=== PATIENT | male | born 1960 | race Caucasian/White ===

== ENCOUNTER 2020-04-18 22:52 | Emergency (ER) | payer MEDICARE, OTHER ==
[2020-04-18] MEDS ORDERED: Adacel (T-DAP) 0.5 ML SYRINGE ONE (23:01)
[2020-04-18 23:24] LABS: #Basophils 0.1 thou/uL (0.0-0.2); #Eosinphils 0.1 thou/uL (0.0-0.7); #Lymphocytes 2.4 thou/uL (1.20-3.40); #Monocytes 0.8 thou/uL (0.11-0.59); #Neutrophils 5.8 thou/uL (1.40-6.50); %Basophils 0.9 % (0.0-1.0); %Eosinophils 0.6 % (0.0-10.0); %Lymphocytes 26.3 % (21.0-51.0); %Neutrophils 63.3 % (42.0-75.0); Hemoglobin 14.2 g/dL (14.0-18.0); Mean Corpuscular HGB CONC 34.9 g/dL (32.0-36.0); Mean Corpuscular Hemoglobin 33.9 pg (27.0-31.0); Mean Corpuscular Volume 97.3 fL (78.0-98.0); Mean Platelet Volume 7.7 fL (7.4-10.4); Platelet Count 215 thou/uL (130-400); RBC Distribution Width 12.1 % (11.5-14.5); Red Blood Cell (RBC) Count 4.17 mill/uL (4.70-6.10); White Blood Cell (WBC) Count 9.1 thou/uL (4.8-10.8)
[2020-04-18 23:44] LABS: ALT (SGPT) 40 U/L (8-55); AST (SGOT) 44 U/L (5-34); Albumin 4.3 g/dL (3.4-4.8); Alkaline Phosphatase 48 U/L (40-110); Anion Gap 15 mmol/L (10-20); BUN (Urea Nitrogen) 14 mg/dL (8.4-25.7); Bilirubin, Total 0.4 mg/dL (0.2-1.2); Calc. Creatinine Clearance 0 mL/min (70-130); Calcium 9.1 mg/dL (7.8-10.44); Carbon Dioxide 23 mmol/L (23-31); Chloride 99 mmol/L (98-107); Estimated GFR-MDRD 63; Globulin 3.5 g/dL (2.4-3.5); Glucose 107 mg/dL (80-115); Potassium 3.9 mmol/L (3.5-5.1); Protein, Total 7.8 g/dL (5.8-8.1); Sodium 133 mmol/L (136-145)
--- NOTE | 2020-04-19 00:01 | CT ---
EXAM: CT brain without contrast HISTORY: Syncope. Found unconscious COMPARISON: None TECHNIQUE: Multiple contiguous axial images were obtained and a CT of the brain without contrast. FINDINGS: The brain is normal in morphology and attenuation without focal lesions or confluent areas of infarction. There is no evidence of hydrocephalus, intracranial hemorrhage, or extra-axial fluid collection. The calvarium and overlying soft tissues are unremarkable. The visualized paranasal sinuses and masto id air cells are well aerated. IMPRESSION: No evidence of acute intracranial abnormality
--- NOTE | 2020-04-19 07:32 | RAD ---
RADIOGRAPH CHEST 1 VIEW: DATE: 04/19/2020 HISTORY: 59-year-old male status post syncope. Concern for aspiration. FINDINGS: There are no airspace densities, pulmonary edema, pneumothorax, or cardiomegaly. The lateral costophr enic angles are sharp. IMPRESSION: No acute cardiopulmonary findings.
--- NOTE | 2020-04-19 08:16 | MRI ---
PRELIMINARY REPORT/[facility]/EMERGENCY AFTER HOURS PROCEDURE: EXAM: MR Cervical Spine Without Intravenous Contrast. CLINICAL HISTORY: FALL, C/O BILAT HAND NUMBNESS TECHNIQUE: Magnetic resonance images of the cervical spine without intravenous contrast in multiple p lanes. CONTRAST: Without COMPARISON: 02/22/2016. FINDINGS: The vertebral body heights are maintained. Multilevel mild to moderate disc narrowing and osteophytosis throughout the cervical spine. The cervical cord is normal in signal. The bone marrow signal is normal. The facets are well aligned. The paravertebral soft tissues are normal. FINDINGS BY LEVEL: C2-C3: No central canal or foraminal stenosis. C3-C4: Left-sided uncinate spondylosis and left-sided facet hypertrophy with severe left-sided forami nal stenosis. The thecal sac is normal in size. The right foramen is patent. C4-C5: Posterior disc bulge. The thecal sac measures 7 mm in AP dimension. Bilateral uncinate spond ylosis with severe right and moderate left foraminal stenosis. C5-C6: Central disc protrusion. Thecal sac measures 7 mm in AP dimension. Bilateral uncinate spondy losis with severe bilateral foraminal stenosis. C6-C7: Posterior disc bulge. The thecal sac measures 8 mm in AP dimension. Bilateral uncinate spond ylosis with severe bilateral foraminal stenosis. C7-T1: Bilateral uncinate spondylosis with moderate bilateral foraminal stenosis. The thecal sac is normal in size. IMPRESSION: No acute cervical spinal abnormality. Multilevel mild to moderate degenerative disc disea se. Moderate central stenosis at C4-C5 and C5-C6 and mild at C6-C7. Multilevel foraminal stenosis, severe at multiple levels. The findings appear relatively unchanged since 02/22/2016. ELECTRONICALLY SIGNED BY: Can Bain MD Apr 19, 2020 2:21:00 AM CDT FINAL REPORT MRI CERVICAL SPINE WITHOUT CONTRAST: HISTORY: Fall. Abrasions. Trauma. Bilateral hand numbness.. COMPARISON: 02/22/2016. FINDINGS: Appropriate T1 marrow signal intensity of the cervical vertebrae. No fracture. No significant STIR h yperintensity to suggest vertebral body edema or ligamentous injury. There is fluid in the C6-C7 disc space which is developed in the interim. Preserved endplates. Prevertebral fluid and edema at th e C6-T2 prevertebral soft tissues suggesting at least partial disruption of the anterior longitudinal ligament. Visualized brain parenchyma, cervicomedullary junction, cervical cord and the upper thoracic cord hav e normal size and signal intensity. C2-C3: Disc desiccation. No significant central canal stenosis or significant neural foraminal narrow ing. C3-C4: Disc desiccation with stable severe loss of disc space height. Redemonstration of a broad-base d disc-osteophyte complex. Mild to moderate central canal stenosis. Mild bilateral neural foraminal narrowing due to uncovertebral hypertrophy. C4-C5: Disc desiccation with severe loss of disc space height. Broad-based disc-osteophyte complex wi th severe central canal stenosis. Severe right and [id number] left foraminal narrowing due to uncovertebral hypertrophy. C5-C6: Stable disc desiccation with severe loss of disc space height. Broad-based disc bulge with a c entral disc herniation. Moderate central canal stenosis. Two subtle foci of T2 hyperintensity in the cervical cord, nonspecific. Moderate right and moderate to severe left neural foraminal narrowing due to uncovertebral hypertrophy. C6-C7: Fluid in the disc space. Broad-based discussed by complex. Mild to moderate central canal sten osis. Moderate right and moderate to severe left neural foraminal narrowing. C7-T1: Disc desiccation with mild loss of disc space height. No high-grade central canal stenosis. Mi ld to moderate bilateral neural foraminal narrowing. IMPRESSION: 1. This report is in disagreement with initial report by [facility]. There is edema in the C6- C7 disc space along with edema along the anterior longitudinal ligament suggesting ligamentous injury as well as possible injury of the C6-C7 disc. There does not appear to be an associated fractu re throughout the cervical spine. 2. There are 2 areas of T2 hyperintensity in the central engel matter of the cervical cord at the C5-C 6 level. Signal abnormality is noted on previous examination favoring remote myelomalacia. 3. Results of study conveyed to Dr. Patel 04/19/2020 at 8:13 AM. Code CR Transcribed Date/Time: 04/19/2020 9:07 AM
--- NOTE | 2020-04-19 09:28 | CT ---
CT CERVICAL SPINE WITHOUT CONTRAST: Date: 04/18/2020 HISTORY: Found unconscious with forehead abrasion. Neck pain. TECHNIQUE: Multiple contiguous axial images were obtained in a CT of the cervical spine without contrast. FINDINGS: The vertebral bodies demonstrate normal height and alignment without acute fracture or subluxation. N o prevertebral soft tissue swelling is seen. The intervertebral discs are narrowed throughout the cer vical spine with moderate degenerative changes seen throughout the cervical spine. The posterior faces are well aligned. Normal alignment of the skull base with the cervical spine is s een. IMPRESSION: Moderate degenerative changes of the cervical spine without acute osseous abnormality. POS: EAA
--- NOTE | 2020-04-21 11:55 | EKG ---
Test Reason : NURJEP Blood Pressure : / mmHG Vent. Rate : 055 BPM Atrial Rate : 055 BPM P-R Int : 178 ms QRS Dur : 096 ms QT Int : 434 ms P-R-T Axes : 064 022 016 degrees QTc Int : 415 ms Sinus bradycardia Otherwise normal ECG Confirmed by WENDY RODRIGUEZ ([id number]), slot editor RODOLFO POLANCO ([id number]) on 04/21/2020 11:55:23 AM Referred By: Confirmed By:WENDY RODRIGUEZ
== END 2020-04-19 02:40 | disposition home or self-care (01) ==
LOC: ERS 22:52
DX: S06.9X9A Unspecified intracranial injury with loss of consciousness of unspecified duration, initial encounter (principal); R55 Syncope and collapse; R20.2 Paresthesia of skin; I10 Essential (primary) hypertension; Z79.899 Other long term (current) drug therapy; Z79.82 Long term (current) use of aspirin
CPT/HCPCS: 70450; 71045; 72125; 72141; 80053; 84484; 85025; 90715; 93005; J0690

== ENCOUNTER 2020-07-04 05:49 | Outpatient (CLI) | payer MEDICARE, OTHER ==
[2020-07-04 10:05] LABS: Hemoglobin 13.7 g/dL (14.0-18.0); Mean Corpuscular HGB CONC 34.5 G/DL (32.0-36.0); Mean Corpuscular Hemoglobin 32.5 PG (27.0-33.0); Mean Corpuscular Volume 94.1 fl (80.0-100.0); Mean Platelet Volume 9.5 fl (7.4-10.4); Platelet Count 175 10x3/uL (130-400); RBC Distribution Width 12.2 % (11.5-14.5); Red Blood Cell (RBC) Count 4.22 10x6/uL (4.40-5.80); White Blood Cell (WBC) Count 4.9 10x3/uL (4.5-11.0)
[2020-07-04 10:21] LABS: INR-International Normal Ratio 1.1; PTT 31.8 sec (22.0-33.0); Prothrombin Time 11.1 sec (9.5-12.1)
[2020-07-04 10:35] LABS: Anion Gap 17 mmol/L (10-20); BUN (Urea Nitrogen) 15 mg/dL (8.4-25.7); Calc. Creatinine Clearance 0 mL/min (70-130); Calcium 8.8 mg/dL (7.8-10.44); Carbon Dioxide 20 mmol/L (23-31); Chloride 105 mmol/L (98-107); Estimated GFR-MDRD Greater than 90; Glucose 92 mg/dL (80-115); Potassium 4.4 mmol/L (3.5-5.1); Sodium 138 mmol/L (136-145)
[2020-07-05 18:39] LABS: SARS-CoV-2 MS2 Positive; SARS-CoV-2 N Gene Negative; SARS-CoV-2 S Gene Negative; SARS-CoV-2 by NAA Not Detected (NotDetected); SARS-CoV-2 orf1ab Negative
== END 2020-07-04 05:50 | disposition home or self-care (01) ==
LOC: LABBT 05:49
PROVIDERS: ATTEND Internal Medicine Cardiovascular Disease
DX: Z01.818 Encounter for other preprocedural examination (principal); I48.91 Unspecified atrial fibrillation; Z20.828 Contact with and (suspected) exposure to other viral communicable diseases
CPT/HCPCS: 80048; 85027; 85610; 85730; U0003; 87635

== ENCOUNTER 2020-07-25 05:31 | Observation (INO) | payer MEDICARE, OTHER ==
[2020-07-24 10:26] VITALS: BMI 25.8
[2020-07-25] MEDS ORDERED: Heparin 10,000 UNITS/ 10 ML VIAL ONE ×2 (06:41→10:40)
[2020-07-25] MEDS ORDERED: Fentanyl 100 MCG/2 ML VIAL ONE ×2 (07:27→13:42)
[2020-07-25] MEDS ORDERED: Isoproterenol 0.2 MG/1 ML AMP ONE ×2 (07:52→11:09)
[2020-07-25] MEDS ORDERED: Heparin 25,000 units/D5W 500 ML ONE (08:18)
[2020-07-25] MEDS ORDERED: Ondansetron PF 4 MG/2 ML Vial ONE (09:12)
[2020-07-25] MEDS ORDERED: PROPOFOL 200 MG/20 ML VIAL ONE (09:12)
[2020-07-25] MEDS ORDERED: Lidocaine 1% PF 5 ML VIAL ONE (09:12)
[2020-07-25] MEDS ORDERED: Succinylcholine 200 MG/10 ml SYRINGE FS ONE (09:12)
[2020-07-25] MEDS ORDERED: Glycopyrrolate 0.2 MG/ML 5 ML SYRINGE ONE (09:12)
[2020-07-25] MEDS ORDERED: Dexamethasone 20 MG/5 ML VIAL ONE (09:12)
[2020-07-25] MEDS ORDERED: Rocuronium Bromide 10 MG/ML (10ML VIAL) ONE (09:12)
[2020-07-25] MEDS ORDERED: Protamine Sulfate 50 MG/5 ML VIAL ONE (11:27)
[2020-07-25] MEDS ORDERED: HYDROcodone/Acetaminophen 10/325 mg Tablet PO PRN (12:05)
[2020-07-25] MEDS ORDERED: Temazepam 15 MG CAP PO PRN (12:06)
[2020-07-25] MEDS ORDERED: diphenhydrAMINE 50 MG CAP PO PRN (12:06)
[2020-07-25] MEDS ORDERED: Ketorolac Tromethamine 30 MG/ML VIAL IVP PRN (12:06)
[2020-07-25] MEDS ORDERED: Acetaminophen/Codeine 30-300mg Tablet PO PRN ×2 (12:15)
--- NOTE | 2020-07-25 17:54 | OP ---
DATE OF PROCEDURE: 07/25/2020 PROCEDURES PERFORMED: Electrophysiology study and radiofrequency ablation report. REASON FOR PROCEDURE: Mr. Ochoa is a 59-year-old male with a history of paroxysmal atrial fibrillation with recurrences despite flecainide therapy. He is here for pulmonary venous isolation procedure. DESCRIPTION OF PROCEDURE: The patient received general anesthesia by Anesthesia specialist. After adequate level of sedation was achieved, the left and right femoral venous areas were prepped and draped and accessed under ultrasound guidance and two 8-Seneg[place]e sheaths were introduced in the right femoral vein and an 8 and 11-[place]eg[place]e sheaths were introduced in the left femoral vein under ultrasound guidance. Through the 11-[place]eg[place]e sheath, an intracardiac echocardiogram probe was passed into the right atrium to monitor transseptal puncture, pericardial space, and catheter manipulation throughout the procedure. Also from the left femoral vein, a Decanav catheter mapping and pacing catheter was advanced to the right atrium, His bundle, right ventricle, and CS positions. 3D map of the right atrium and these locations were obtained as well. Following that, IV heparin was administered in a bolus and drip fashion, which was empirically adjusted to keep ACT over 350. From the right femoral venous sheaths were exchanged to two SL1 sheaths, which were used to perform a transseptal puncture with ultrasound and fluoroscopic monitoring with the help of powered Dixon needle. Through the SL1 sheath, a ThermoCool SFST and a 20-pole Lasso catheter were advanced to the left atrium. 3D map of the left atrium was obtained. Four separate pulmonary veins were noted. Mildly enlargement of left atrium was seen. Baseline EP study was also performed with the baseline rhythm was sinus rhythm, narrow QRS, HV interval 46 msec. The sinus node recovery time was measured at 1336 msec. Corrected sinus node recovery time was 342 msec. AV Wenckebach cycle length was 480 msec. AV cleo ERP was 600/240 msec. Dual AV cleo physiology was present. The ablation catheter was advanced to the LV and ventricular pacing was used to rule out accessory pathways. VA block was noted at 360 msec. Concentric retrograde VA conduction was noted. Following that, standard pulmonary venous isolation procedure was performed isolating all 4 pulmonary veins, roof, and inferoposterior lines also drawn to achieve posterior wall isolation. Posterior wall suboptimally isolated at the site of the esophagus to avoid excessive heating. Throughout the ablation, posterior wall was monitored with esophageal temperatures and any heating was met with extra irrigation. Following that, Isuprel was administered and any reconnections re-ablated. Burst atrial pacing from 300 down to 200 msec did not induce atrial fibrillation or flutter at the end of the case. No additional arrhythmias induced either. The cardiac silhouette and pericardial space by intracardiac echocardiogram did not change throughout the procedure. The catheter was removed from the left side and IV heparin was stopped and reversed with protamine. Long sheaths were exchanged for short sheaths and Vascade closure was performed on all 4 femoral venous access. A total of 111 ablation lesions were placed at 40 cerda with total duration of the ablation was 30 minutes and 15 seconds. The patient tolerated the procedure well. No complications noted. CONCLUSIONS: 1. Sinus rhythm at baseline. 2. Emhh-ku-[id number] left atrial enlargement. 3. Four pulmonary veins isolated. 4. Posterior wall ablation also attempted. Residual conduction seen in the esophageal area, which avoided excessive heating. 5. No arrhythmias inducible at the end of the case. 6. No evidence of accessory pathway. 7. Normal AV cleo and sinus cleo function. PLAN: Stop flecainide. Continue oral anticoagulation. Monitor for recurrent arrhythmias. Job ID: [id number]
[2020-07-25] MEDS: Apixaban 5 MG TAB PO SCH (21:26)
[2020-07-25] MEDS: Sucralfate 1 GM TAB PO SCH (21:26)
[2020-07-26] MEDS: Sucralfate 1 GM TAB PO SCH ×3 (03:18→11:26)
--- NOTE | 2020-07-26 07:13 | EKG ---
Test Reason : POST ABLATION Blood Pressure : / mmHG Vent. Rate : 084 BPM Atrial Rate : 084 BPM P-R Int : 136 ms QRS Dur : 088 ms QT Int : 388 ms P-R-T Axes : 060 026 032 degrees QTc Int : 458 ms Normal sinus rhythm Normal ECG Confirmed by DR. Marquis WILSON ([id number]) on 07/26/2020 7:12:49 AM Referred By: [facility] Confirmed By:DR. Marquis WILSON
[2020-07-26] MEDS ORDERED: Lisinopril 20 MG TAB PO SCH (09:00)
[2020-07-26] MEDS ORDERED: FLU VACC QS2020-21(6MOS UP)/PF 60 MCG/0.5 ML SYRINGE IM ONE (09:00)
[2020-07-26] MEDS: Apixaban 5 MG TAB PO SCH (09:10)
[2020-07-26 11:25] VITALS: BP 133/78; TEMP 98.7
--- NOTE | 2020-07-27 02:27 | DIS ---
DATE OF ADMISSION: 07/25/2020 DATE OF DISCHARGE: 07/26/2020 23-hour observation. DIAGNOSIS: Atrial fibrillation. PROCEDURE PERFORMED: Includes electrophysiology study with radiofrequency ablation. HISTORY OF PRESENT ILLNESS: Mr. Ochoa is a 59-year-old gentleman with history of paroxysmal atrial fibrillation, suboptimally suppressed with low-dose flecainide. Increasing antiarrhythmic therapy was limited due to his bradycardia, which has even caused syncope in the past. He elected to go for a pulmonary venous isolation ablation, which was performed on 07/25/2020. He has done well overnight. Procedures, four pulmonary veins isolated. Posterior wall ablation was attempted, but residual conduction seen in the esophageal area. Noninducible at the end of the case. [id number] left atrial enlargement. Total ablation time 30 minutes 15 seconds. SUBJECTIVE: The patient feels well. He is voicing no heart racing, palpitations, chest pain, pressure, syncope, near syncope, chest discomfort, shortness of breath, or bleeding at the groin sites. He feels well and is eager to go home. REVIEW OF SYSTEMS: An 8-point review of systems is negative. OBJECTIVE: VITAL SIGNS: Stable. Heart rates in the 70s, sinus rhythm with no early recurrence of atrial arrhythmias or significant atrial ectopy. Blood pressure 133/78. He is on room air. GENERAL: He is alert, oriented. Speech is clear. Affect is appropriate. NECK: There is no jugular venous distention, and hepatojugular reflux is negative. CARDIAC: Heart rate is irregularly irregular with crisp S1 and S2. LUNGS: Clear to auscultation. ABDOMEN: Soft and nontender. NEUROLOGIC: Nonfocal. Gait was stable. SKIN: Bilateral groin sites do not exhibit any bleeding complications. EXTREMITIES: Without clubbing, cyanosis, or edema. DISCHARGE MEDICATIONS: Include resuming home medications of: 1. Temazepam. 2. Metoprolol succinate 50 mg daily. 3. Lisinopril 40 mg q.a.m. 4. Spurger as needed. 5. Eliquis 5 mg b.i.d. New prescriptions provided: 1. Carafate 1 g p.o. q.i.d. x2 weeks. 2. Pantoprazole 40 mg daily x2 weeks. 3. Furosemide 40 mg p.o. daily p.r.n. shortness of breath, edema, weight gain, to be taken with K-Dur 20 mEq. Discontinued medications: Flecainide. DISCHARGE INSTRUCTIONS: No lifting more than 10 to 15 pounds for 1 week or until bilateral groin sites have healed without any residual tenderness. Do not drive until groin sites are healed, minimum of three days without driving. Take medications as prescribed and follow up in 6 weeks. Contact [facility] with any postablation concerns or questions. Six-week followup will be arranged. CONDITION AT DISCHARGE: Stable. Job ID: [id number]
== END 2020-07-26 12:03 | disposition home or self-care (01) ==
LOC: CCL 05:31 → 2NO 12:09
PROVIDERS: ADMIT Internal Medicine Cardiovascular Disease; ATTEND Internal Medicine Cardiovascular Disease
PROC: 02583ZZ Destruction of Conduction Mechanism, Percutaneous Approach (ICD-10-PCS; principal; 2020-07-25)
PROC: 02K83ZZ Map Conduction Mechanism, Percutaneous Approach (ICD-10-PCS; 2020-07-25)
PROC: 4A023FZ Measurement of Cardiac Rhythm, Percutaneous Approach (ICD-10-PCS; 2020-07-25)
PROC: 4A0234Z Measurement of Cardiac Electrical Activity, Percutaneous Approach (ICD-10-PCS; 2020-07-25)
DX: I48.0 Paroxysmal atrial fibrillation (principal); I49.5 Sick sinus syndrome; G47.30 Sleep apnea, unspecified; Z79.01 Long term (current) use of anticoagulants; Z79.899 Other long term (current) drug therapy
CPT/HCPCS: 76942; 85347 ×2; 93005; 93613; 93623; 93656; 93657; 93662; C1732 ×3; C1759; G0378; J1100; J1644; J2405; J2704; J2720; J3010

== ENCOUNTER 2023-04-07 07:02 | Outpatient (CLI) | payer MEDICARE, OTHER | END 2023-04-07 07:03 | disposition home or self-care (01) | LOC: BICMRI 07:02 | PROVIDERS: ATTEND Neurological Surgery | DX: M54.50 Low back pain, unspecified (principal); M50.31 Other cervical disc degeneration, high cervical region; M47.816 Spondylosis without myelopathy or radiculopathy, lumbar region; M48.061 Spinal stenosis, lumbar region without neurogenic claudication; M48.07 Spinal stenosis, lumbosacral region; M48.02 Spinal stenosis, cervical region; G95.89 Other specified diseases of spinal cord; Z98.890 Other specified postprocedural states | CPT/HCPCS: 72141; 72148 ==

== ENCOUNTER 2023-07-07 13:45 | Outpatient (CLI) | payer MEDICARE, OTHER ==
[2023-07-07 15:27] LABS: Hematocrit 40.9 % (38.8-50.0); Hemoglobin 13.9 g/dL (13.5-17.5); Mean Corpuscular Hemoglobin 31.2 pg (27.0-33.0); Mean Corpuscular Volume 91.9 fl (81.2-95.1); Mean Platelet Volume 9.7 fl (7.4-10.4); Platelet Count 333 10x3/uL (150-450); Red Blood Cell (RBC) Count 4.45 10x6/uL (4.32-5.72); White Blood Cell (WBC) Count 9.2 10x3/uL (3.5-10.5)
[2023-07-07 15:54] LABS: Anion Gap 16 mmol/L (10-20); BUN (Urea Nitrogen) 17 mg/dL (8.4-25.7); Calc. Creatinine Clearance 0 mL/min (70-130); Carbon Dioxide 25 mmol/L (23-31); Chloride 104 mmol/L (98-107); Estimated GFR 100; Glucose 89 mg/dL (80-115); Potassium 4.4 mmol/L (3.5-5.1); Sodium 141 mmol/L (136-145)
== END 2023-07-07 13:46 | disposition home or self-care (01) ==
LOC: LABBT 13:45
PROVIDERS: ATTEND Neurological Surgery
DX: Z01.818 Encounter for other preprocedural examination (principal); M54.12 Radiculopathy, cervical region
CPT/HCPCS: 80048; 85027; 93005; 93010

== ENCOUNTER 2023-07-13 07:22 | Observation (INO) | payer MEDICARE, OTHER ==
[2023-07-07 14:22] VITALS: BMI 25.8
[2023-07-13] MEDS ORDERED: CEFAZOLIN 2 GM VIAL ONE ×2 (08:58→15:41)
[2023-07-13] MEDS ORDERED: Sodium Chloride 0.9% 100 ML ONE ×2 (08:58→15:41)
[2023-07-13] MEDS ORDERED: PROPOFOL 0 ML ONE (08:59)
[2023-07-13] MEDS ORDERED: Succinylcholine 200 MG/10 ml SYRINGE FS ONE (08:59)
[2023-07-13] MEDS ORDERED: Lidocaine 1% PF 5 ML VIAL ONE ×3 (08:59→09:24)
[2023-07-13] MEDS ORDERED: fentaNYL PF 100 MCG/2 ML SYRINGE ONE ×2 (09:06→10:06)
[2023-07-13] MEDS ORDERED: Rocuronium Bromide 10 MG/ML (10ML VIAL) ONE ×2 (09:06→09:24)
[2023-07-13] MEDS ORDERED: PROPOFOL 20 ML ONE (09:06)
[2023-07-13] MEDS ORDERED: Ondansetron PF 4 MG/2 ML Vial ONE ×2 (09:24→10:07)
[2023-07-13] MEDS ORDERED: Dexamethasone 20 MG/5 ML VIAL ONE ×2 (09:24→09:45)
[2023-07-13] MEDS ORDERED: PROPOFOL 200 MG/20 ML VIAL ONE (09:24)
[2023-07-13] MEDS ORDERED: Ondansetron HCl/PF 4 MG/2 ML Vial IVP PRN (09:57)
[2023-07-13] MEDS ORDERED: HYDROmorphone 2 MG/ML VIAL SLOW IVP PRN (09:57)
[2023-07-13] MEDS ORDERED: Promethazine HCl 25 MG/ML VIAL IM PRN (09:57)
[2023-07-13] MEDS ORDERED: PACU-Morphine 4MG/ML VIAL SLOW IVP PRN (09:57)
[2023-07-13] MEDS ORDERED: Morphine Sulfate 2 MG/ML SYRINGE SLOW IVP PRN (09:57)
[2023-07-13] MEDS ORDERED: SUGAMMADEX SODIUM 200 MG/2 ML VIAL ONE (10:11)
[2023-07-13] MEDS ORDERED: Morphine 2 MG/ML VIAL SLOW IVP PRN (10:25)
[2023-07-13] MEDS ORDERED: Mag-Al 1200 mg/1200 mg/30 ML UDCUP PO PRN (10:25)
[2023-07-13] MEDS ORDERED: diphenhydrAMINE 50 MG/ML VIAL IVP PRN (10:25)
[2023-07-13] MEDS ORDERED: Cyclobenzaprine 10 MG TAB PO PRN (10:25)
[2023-07-13] MEDS ORDERED: Ondansetron PF 4 MG/2 ML Vial IVP PRN (10:25)
[2023-07-13] MEDS ORDERED: Milk Of Magnesia 30 ML UDCUP PO PRN (10:25)
[2023-07-13] MEDS ORDERED: Acetaminophen/Codeine 30-300mg Tablet PO PRN (10:25)
[2023-07-13] MEDS ORDERED: Promethazine 25 MG TAB PO PRN (10:25)
[2023-07-13] MEDS ORDERED: Acetaminophen 325 MG TAB PO PRN (10:25)
[2023-07-13] MEDS ORDERED: traMADol HCl 50 MG TAB PO PRN (10:25)
[2023-07-13] MEDS ORDERED: Cyclobenzaprine 10 MG TAB ONE (10:52)
[2023-07-13] MEDS ORDERED: fentaNYL 50 mcg/mL 1 mL Vial ONE ×4 (10:59→15:27)
[2023-07-13] MEDS ORDERED: HYDROmorphone 0.5 MG/0.5 ML SYRINGE ONE ×3 (11:00→15:27)
[2023-07-13] MEDS ORDERED: hydrALAZINE 20 MG/ML VIAL ONE (12:02)
[2023-07-13] MEDS: CEFAZOLIN 2 GM in Sodium Chloride 0.9% 100 ML IVPB SCH (16:32)
[2023-07-13] MEDS: Sodium Chloride 0.9% 1,000 ML IV SCH (16:33)
[2023-07-13] MEDS ORDERED: hydrALAZINE 20 MG/ML VIAL SLOW IVP PRN (18:04)
[2023-07-13] MEDS ORDERED: Labetalol HCl 100 MG/20 ML VIAL SLOW IVP PRN (18:05)
[2023-07-13] MEDS ORDERED: FLU VACC QS2023-24(6MOS UP)/PF 60 MCG/0.5 ML SYRINGE IM ONE (19:00)
[2023-07-13] MEDS: Acetaminophen/Codeine 30-300mg Tablet PO PRN (21:26)
[2023-07-14] MEDS: CEFAZOLIN 2 GM in Sodium Chloride 0.9% 100 ML IVPB SCH ×2 (01:25→09:15)
[2023-07-14] MEDS: Sodium Chloride 0.9% 1,000 ML IV SCH (01:26)
[2023-07-14] MEDS: Acetaminophen/Codeine 30-300mg Tablet PO PRN (01:56)
[2023-07-14 08:27] VITALS: BP 168/86; TEMP 97.9
[2023-07-14] MEDS ORDERED: Lisinopril 20 MG TAB PO SCH (09:00)
== END 2023-07-14 11:59 | disposition home or self-care (01) ==
LOC: SDC 07:22 → SURG A 10:30
PROVIDERS: ADMIT Neurological Surgery; ATTEND Neurological Surgery
PROC: 0RG20A0 Fusion of 2 or more Cervical Vertebral Joints with Interbody Fusion Device, Anterior Approach, Anterior Column, Open Approach (ICD-10-PCS; principal; 2023-07-13)
PROC: 0RG2070 Fusion of 2 or more Cervical Vertebral Joints with Autologous Tissue Substitute, Anterior Approach, Anterior Column, Open Approach (ICD-10-PCS; 2023-07-13)
DX: M48.02 Spinal stenosis, cervical region (principal); G99.2 Myelopathy in diseases classified elsewhere; I10 Essential (primary) hypertension; I48.91 Unspecified atrial fibrillation
CPT/HCPCS: 20930; 20936; 22551; 22552; 22845; 22853 ×2; C1713 ×6; J0360; J3010; J1100; J1170; J2272; J2405; J2704; J3490